=== PATIENT | female | born 1995 | race American Indian/Alaskan Native ===

== ENCOUNTER 2019-04-10 19:59 | Emergency (ER) | payer SELFPAY ==
--- NOTE | 2019-04-10 22:32 | Event Note ---
ED Screening Note Date of service: 04/10/19 Time: 22:30 ED Screening Note: 23 y o f presents with n with dizziness and headache also cc of ear pain fever This initial assessment/diagnostic orders/clinical plan/treatment(s) is/are subject to change based on patients health status, clinical progression and re- assessment by fellow clinical providers in the ED. Further treatment and workup at subsequent clinical providers discretion. Patient/guardian urged not to elope from the ED as their condition may be serious if not clinically assessed and managed. Initial orders include: ua, labs
[2019-04-10] MEDS ORDERED: ACETAMINOPHEN 325 MG TAB PO ONE (22:34)
[2019-04-10 22:49] LABS: Hematocrit 32.7 % (30.3-42.9); Hemoglobin 10.4 gm/dl (10.1-14.3); Mean Corpuscular Volume 78 fl (79-97); Red Blood Count 4.18 M/mm3 (3.65-5.03)
[2019-04-10 22:50] LABS: Basophils % (Auto) 0.2 % (0.0-1.8); Lymphocytes # (Auto) 0.4 K/mm3 (1.2-5.4); Lymphocytes % (Auto) 3.3 % (13.4-35.0); Mean Corpuscular HGB Conc 32 % (30-34); Monocytes # (Auto) 1.5 K/mm3 (0.0-0.8); Monocytes % (Auto) 12.4 % (0.0-7.3); Platelet Count 343 K/mm3 (140-440); Red Cell Distribution Width 17.6 % (13.2-15.2)
[2019-04-10 23:09] LABS: BUN/Creatinine Ratio 7; Blood Urea Nitrogen 6 mg/dL (7-17)
[2019-04-10 23:10] LABS: Alanine Aminotransferase 10 units/L (7-56)
[2019-04-11] MEDS ORDERED: SODIUM CHLORIDE 0.9% 1000 ML 1,000 ML IV ONE (00:38)
[2019-04-11] MEDS ORDERED: KETOROLAC 30 MG/1 ML INJ IV ONE (00:38)
[2019-04-11] MEDS ORDERED: SODIUM CHLORIDE 0.9% 1000 ML 2,000 ML IV ONE (00:38)
[2019-04-11] MEDS ORDERED: cefTRIAXone/NS 1 GM/50 ML 1 GM/50 ML BAG IV ONE (00:38)
[2019-04-11] MEDS ORDERED: METOCLOPRAMIDE 10 MG/2 ML INJ IV ONE (00:38)
--- NOTE | 2019-04-11 00:40 | Emergency Department Report ---
ED General Adult HPI - General Chief complaint: Dizziness Stated complaint: DIZZY, FATIGUE, MIGRAINE, EARACHE, RIGHT LUNG, Time Seen by Provider: 04/11/19 00:24 Source: patient, EMS (EMS records not available at time of chart dictation.) Mode of arrival: Ambulatory Limitations: No Limitations - History of Present Illness Initial comments: The patient is a 23-year-old female. The patient is not known to this provider previously. She states she does not have a local primary care doctor. Patient presents with multiple complaints. Her first complaint is simultaneous headache and right-sided ear pain. This is present for the past 5 days. The ear pain is described as aching and throbbing. It is in the right "inside the ear." It does not radiate anywhere. It increases with palpation. It decreases with rest. It was preceded by headache. The headache is frontal. The headache is constant. The headache is not described as sudden or thunderclap in nature. The headache is not maximal in intensity. It is not described as the most intense headache of her life. There is no neck pain or neck stiffness. There is mild sore throat. There is no tinnitus. There is no vertigo. Patient endorses decreased appetite. She is positive nausea. She is able to tolerate liquids. However, she is not eating or drinking as much she typically eats or drinks. She reports that she stumbled earlier on yesterday. She also complains of nontraumatic right-sided flank pain and chills. She might have a cough, she is not sure. She might have dysuria, she is not certain. -: Gradual Location: head, back Radiation: other Quality: other Consistency: other Improves with: other Worsens with: other - Related Data Previous Rx's Medication Instructions Recorded Last Taken Type Acetaminophen [Non-Aspirin Extra 500 mg PO Q6HR PRN #30 tablet 04/11/19 Unknown Rx Strength] Amoxicillin/Potassium Clav 1 each PO BID #20 tablet 04/11/19 Unknown Rx [Augmentin 875-125 Tablet] Ibuprofen [Motrin] 600 mg PO Q8H PRN #30 tablet 04/11/19 Unknown Rx Metoclopramide [Reglan] 10 mg PO QID PRN #30 tablet 04/11/19 Unknown Rx Allergies Allergy/AdvReac Type Severity Reaction Status Date / Time No Known Allergies Allergy Verified 01/04/20 01:38 ED Review of Systems ROS: Stated complaint: DIZZY, FATIGUE, MIGRAINE, EARACHE, RIGHT LUNG, Other details as noted in HPI Constitutional: fever, malaise, weakness Eyes: denies: eye discharge ENT: ear pain. denies: throat pain Respiratory: cough. denies: wheezing Cardiovascular: denies: syncope Gastrointestinal: nausea Musculoskeletal: back pain Skin: denies: lesions Neurological: headache, weakness. denies: numbness, paresthesias, confusion Hematological/Lymphatic: denies: easy bleeding ED Past Medical Hx - Past Medical History Previous Medical History?: Yes Additional medical history: anemia, heart murmur - Surgical History Past Surgical History?: No - Social History Smoking Status: Never Smoker Substance Use Type: None - Medications Home Medications: Home Medications Medication Instructions Recorded Confirmed Last Taken Type Acetaminophen [Non-Aspirin Extra 500 mg PO Q6HR PRN #30 tablet 04/11/19 Unknown Rx Strength] Amoxicillin/Potassium Clav 1 each PO BID #20 tablet 04/11/19 Unknown Rx [Augmentin 875-125 Tablet] Ibuprofen [Motrin] 600 mg PO Q8H PRN #30 tablet 04/11/19 Unknown Rx Metoclopramide [Reglan] 10 mg PO QID PRN #30 tablet 04/11/19 Unknown Rx ED Physical Exam - General Limitations: No Limitations General appearance: alert, in no apparent distress, anxious - Head Head exam: Present: atraumatic, normocephalic - Eye Eye exam: Present: normal appearance, EOMI. Absent: nystagmus - ENT ENT exam: Present: normal exam, normal orophraynx, mucous membranes moist, normal external ear exam, other (left tympanic membrane is clear. right TM with ? effusion. There is no mastoid tenderness. There is no tenderness over the helix.). Absent: TM's normal bilaterally - Neck Neck exam: Present: normal inspection, full ROM. Absent: tenderness, meningismus - Respiratory Respiratory exam: Present: normal lung sounds bilaterally. Absent: respiratory distress - Cardiovascular Cardiovascular Exam: Present: normal rhythm, tachycardia, normal heart sounds. Absent: systolic murmur, diastolic murmur, rubs, gallop - GI/Abdominal GI/Abdominal exam: Present: soft. Absent: distended, tenderness, guarding, rebound, rigid, pulsatile mass - Extremities Exam Extremities exam: Present: normal inspection, full ROM, other (2+ pulses noted in the bilateral upper and lower extremities. The pelvis is stable. There is no long bony tenderness. The muscular compartments are soft. There is no redness, pus, streaking or erythema.). Absent: pedal edema, joint swelling, calf tenderness - Back Exam Back exam: Present: normal inspection, full ROM, CVA tenderness (R). Absent: CVA tenderness (L), muscle spasm, paraspinal tenderness, vertebral tenderness - Neurological Exam Neurological exam: Present: alert, oriented X3, normal gait (there is no past- pointing. There is normal lbwe-rx-abay. There is no pronator drift. There is normal gait.), other (there is no facial droop. The tongue is midline. Extraocular movements are intact bilaterally. Speaking in full sentences. Hearing is grossly intact. 5 out of 5 strength bilateral upper and lower extremities. Sensation is intact to light touch bilateral upper and lower extremities.). Absent: motor sensory deficit - Psychiatric Psychiatric exam: Present: normal affect, normal mood - Skin Skin exam: Present: warm, dry, intact, normal color. Absent: rash ED Course Vital Signs 04/10/19 04/11/19 04/11/19 20:09 00:51 01:00 Temperature 102.6 F H 103.3 F H Pulse Rate 118 H 93 H 102 H Respiratory 14 22 30 H Rate Blood Pressure 129/78 125/64 Blood Pressure 125/64 [Right] O2 Sat by Pulse 100 98 99 Oximetry 04/11/19 04/11/19 04/11/19 01:30 02:47 02:54 Temperature 99.2 F Pulse Rate 100 H 76 Respiratory 21 14 Rate Blood Pressure 111/68 Blood Pressure 103/54 [Right] O2 Sat by Pulse 99 99 Oximetry - Reevaluation(s) Reevaluation #1: 04/11/19 01:32 Differential diagnosis, including but not limited to: Sinusitis, otitis, pneumonia, perinephric abscess, urinary tract infection, pyelonephritis Assessment and plan: 23-year-old female with fever, tachycardia, right-sided CVA tenderness, abnormal-appearing right tympanic membrane, concerning for simultaneous otitis, and right-sided upper urinary tract infection. There is no neck pain or stiffness, she has no meningeal signs, doubt intracranial infection. Urinalysis reviewed and appreciated, very unimpressive given degree of tenderness. CT scan abdomen and pelvis will be obtained to exclude infected stone, hydronephrosis, and perinephric abscess. Doubt intracranial lesion, however, we will obtain CT scan brain/head. We will treat the patient's symptoms, she is walking around the department so far, in no acute distress. Reevaluation #2: 04/11/19 03:15 CT scan reviewed and appreciated. Clinically do not have high suspicion for mastoiditis as the patient does not have postauricular tenderness, warmth, redness, or displacement of the right aural helix She is tolerating liquid feeds and she has defervesced. Her tachycardia has resolved. Furthermore, the patient has been observed in this department for 7 hours, and has clinically improved. Patient loaded with ceftriaxone, and she is suitable for a trial of oral outpatient antibiotic management. 04/11/19 03:18 ED Medical Decision Making - Lab Data Result diagrams: 04/10/19 22:34 04/10/19 22:34 Vital Signs 04/10/19 04/11/19 20:09 00:51 Temperature 102.6 F H 103.3 F H Pulse Rate 118 H 93 H Respiratory 14 22 Rate Blood Pressure 129/78 Blood Pressure 125/64 [Right] O2 Sat by Pulse 100 98 Oximetry Lab Results 04/10/19 04/10/19 04/10/19 Range/Units 22:34 22:34 22:34 WBC 12.2 H (4.5-11.0) K/mm3 RBC 4.18 (3.65-5.03) M/mm3 Hgb 10.4 (10.1-14.3) gm/dl Hct 32.7 (30.3-42.9) % MCV 78 L (79-97) fl MCH 25 L (28-32) pg MCHC 32 (30-34) % RDW 17.6 H (13.2-15.2) % Plt Count 343 (140-440) K/mm3 Lymph % (Auto) 3.3 L (13.4-35.0) % Tate % (Auto) 12.4 H (0.0-7.3) % Eos % (Auto) 0.0 (0.0-4.3) % Baso % (Auto) 0.2 (0.0-1.8) % Lymph # 0.4 L (1.2-5.4) K/mm3 Tate # 1.5 H (0.0-0.8) K/mm3 Eos # 0.0 (0.0-0.4) K/mm3 Baso # 0.0 (0.0-0.1) K/mm3 Seg Neutrophils % 84.1 H (40.0-70.0) % Seg Neutrophils # 10.2 H (1.8-7.7) K/mm3 Sodium 134 L (137-145) mmol/L Potassium 3.4 L (3.6-5.0) mmol/L Chloride 100.7 (98-107) mmol/L Carbon Dioxide 18 L (22-30) mmol/L Anion Gap 19 mmol/L BUN 6 L (7-17) mg/dL Creatinine 0.9 (0.7-1.2) mg/dL Estimated GFR > 60 ml/min BUN/Creatinine Ratio 7 % Glucose 129 H (65-100) mg/dL Calcium 9.0 (8.4-10.2) mg/dL Total Bilirubin 0.60 (0.1-1.2) mg/dL AST 17 (5-40) units/L ALT 10 (7-56) units/L Alkaline Phosphatase 57 (35-129) units/L Total Protein 8.1 (6.3-8.2) g/dL Albumin 4.0 (3.9-5) g/dL Albumin/Globulin Ratio 1.0 % HCG, Quant < 0.5 (0-4) mIU/mL Urine Color (Yellow) Urine Turbidity (Clear) Urine pH (5.0-7.0) Ur Specific [place] (1.003-1.030) Urine Protein (Negative) mg/dL Urine Glucose (UA) (Negative) mg/dL Urine Ketones (Negative) mg/dL Urine Blood (Negative) Urine Nitrite (Negative) Urine Bilirubin (Negative) Urine Urobilinogen (<2.0) mg/dL Ur Leukocyte Esterase (Negative) Urine WBC (Auto) (0.0-6.0) /HPF Urine RBC (Auto) (0.0-6.0) /HPF U Epithel Cells (Auto) (0-13.0) /HPF Urine Bacteria (Auto) (Negative) /HPF Urine Mucus /HPF 04/10/19 Range/Units 23:48 WBC (4.5-11.0) K/mm3 RBC (3.65-5.03) M/mm3 Hgb (10.1-14.3) gm/dl Hct (30.3-42.9) % MCV (79-97) fl MCH (28-32) pg MCHC (30-34) % RDW (13.2-15.2) % Plt Count (140-440) K/mm3 Lymph % (Auto) (13.4-35.0) % Tate % (Auto) (0.0-7.3) % Eos % (Auto) (0.0-4.3) % Baso % (Auto) (0.0-1.8) % Lymph # (1.2-5.4) K/mm3 Tate # (0.0-0.8) K/mm3 Eos # (0.0-0.4) K/mm3 Baso # (0.0-0.1) K/mm3 Seg Neutrophils % (40.0-70.0) % Seg Neutrophils # (1.8-7.7) K/mm3 Sodium (137-145) mmol/L Potassium (3.6-5.0) mmol/L Chloride (98-107) mmol/L Carbon Dioxide (22-30) mmol/L Anion Gap mmol/L BUN (7-17) mg/dL Creatinine (0.7-1.2) mg/dL Estimated GFR ml/min BUN/Creatinine Ratio % Glucose (65-100) mg/dL Calcium (8.4-10.2) mg/dL Total Bilirubin (0.1-1.2) mg/dL AST (5-40) units/L ALT (7-56) units/L Alkaline Phosphatase (35-129) units/L Total Protein (6.3-8.2) g/dL Albumin (3.9-5) g/dL Albumin/Globulin Ratio % HCG, Quant (0-4) mIU/mL Urine Color Yellow (Yellow) Urine Turbidity Slightly cloudy (Clear) Urine pH 5.0 (5.0-7.0) Ur Specific [place] 1.017 (1.003-1.030) Urine Protein <15 mg/dl (Negative) mg/dL Urine Glucose (UA) Neg (Negative) mg/dL Urine Ketones Neg (Negative) mg/dL Urine Blood Small A (Negative) Urine Nitrite neg (Negative) Urine Bilirubin Neg (Negative) Urine Urobilinogen 2.0 (<2.0) mg/dL Ur Leukocyte Esterase Small (Negative) Urine WBC (Auto) 4.0 (0.0-6.0) /HPF Urine RBC (Auto) 5.0 (0.0-6.0) /HPF U Epithel Cells (Auto) 4.0 (0-13.0) /HPF Urine Bacteria (Auto) 1+ (Negative) /HPF Urine Mucus 3+ /HPF - Radiology Data Radiology results: report reviewed, image reviewed Print Report Referring Physician: VALERY BELL Patient Name: YONI AUSTIN Date of : 1995 Sex: Female Report Date: 2019-04-11 Report Status: Finalized Findings [facility] [address] [place] [address] Cat Scan Report Signed Patient: YONI AUSTIN MR#: [id number] 2 : 1995 Acct:[id number] Age/Sex: 23 / F ADM Date: 04/10/19 Loc: ED Attending Dr: Ordering Physician: VALERY BELL MD Date of Service: 04/11/19 Procedure(s): CT head/brain wo con Accession Number(s): [id number] cc: VALERY BELL MD Examination: CT of the head without contrast Clinical information: Headache. Right-sided ear pain. Comparison: None Technical: Multiple axial CT images of the head were obtained without intravenous contrast. Sagittal and coronal reformats were obtained. All CTs at this facility utilize dose reduction techniques including automated exposure control, iterative reconstruction and weight based dosing when appropriate to reduce patient radiation dose to as low as reasonable achievable. Findings: There is no CT evidence of acute intracranial hemorrhage or large territorial infarct. The ventricular system is normal in size. There are no extra-axial fluid collections. Evaluation of bony structures demonstrate the visualized paranasal sinuses to be clear. There is partial fluid opacification of some of the right-sided mastoid air cells. The external auditory canals appear clear. Impression: 1. Partial fluid opacification of the right-sided mastoid air cells. This is a nonspecific finding but could suggest mastoiditis in this patient with right-sided ear pain. Please correlate clinically. Signer Name: Elodia Choudhary MD Signed: 04/11/2019 2:37 AM Workstation Name: [id number] Transcribed By: EB Dictated By: Elodia Choudhary MD Electronically Authenticated By: Elodia Choudhary MD Signed Date/Time: 04/11/19236 DD/ 2 Print Report Referring Physician: VALERY BELL Patient Name: YONI AUSTIN Date of : 1995 Sex: Female Report Date: 2019-04-11 Report Status: Finalized Findings [facility] [address] [place] [address] Cat Scan Report Signed Patient: YONI AUSTIN MR#: [id number] 2 : 1995 Acct:[id number] Age/Sex: 23 / F ADM Date: 04/10/19 Loc: ED Attending Dr: Ordering Physician: VALERY BELL MD Date of Service: 04/11/19 Procedure(s): CT abdomen pelvis w con Accession Number(s): [id number] cc: VALERY BELL MD CT ABDOMEN AND PELVIS WITH IV CONTRAST INDICATION: Right-sided flank pain and fever TECHNIQUE: Following the administration of intravenous contrast, multiple axial CT images of the abdomen and pelvis were acquired. Sagittal and coronal reformats were obtained. All CT performed at this facility utilize dose reduction techniques including automated exposure control, iterative reconstruction and weight based dosing when appropriate to reduce patient radiation dose to as low as reasonably achievable. COMPARISON: None FINDINGS: Limited imaging of the bilateral lung bases demonstrates a possible small focus of airspace disease within the right middle lobe partially visualized. Abdomen: The liver, spleen, gallbladder, pancreas, bilateral adrenal glands and bilateral kidneys show no evidence of acute abnormality. There is no evidence of bowel obstruction. The appendix is not visualized and there may have been previous appendectomy. Pelvis: No free fluid is seen within the pelvis. The urinary bladder and uterus appear normal. Bones and Soft Tissues: Evaluation of bony structures demonstrates no evidence of acute bony abnormality. Evaluation of soft tissue structures demonstrates no evidence of acute soft tissue abnormality. IMPRESSION: 1. No CT evidence of acute inflammatory or obstructive process within the abdomen or pelvis. 2. Possible small focus of airspace disease within the visualized right middle lobe which could suggest pneumonia. Please correlate clinically. Signer Name: Elodia Choudhary MD Signed: 04/11/2019 2:41 AM Workstation Name: [id number] Transcribed By: PEDRO Dictated By: Elodia Choudhary MD Electronically Authenticated By: Elodia Choudhary MD Signed Date/Time: 04/11/19 0241 TD/TT: Critical care attestation.: If time is entered above; I have spent that time in minutes in the direct care of this critically ill patient, excluding procedure time. ED Disposition Clinical Impression: Acute febrile illness, Otalgia of right ear, Right flank pain Disposition: -01 TO HOME OR SELFCARE Is pt being admited?: No Does the pt Need Aspirin: No Condition: Stable Additional Instructions: Advance diet as tolerated. Do not take metformin medication for the next 2 days, it patient takes this medication. Cultures were sent today, and results will be available in the next 3-5 days. Please have a primary care doctor contact the medical records department to obtain culture results. Please follow-up with a medical provider within the next 2-3 days for repeat checkup and/or evaluation. Patient may follow-up with the primary care doctor, ent doctor, or urgent care center, or return to this emergency room for repeat checkup and evaluation. Please return to the emergency room right away with projectile vomiting, change in mental status, confusion, inability to tolerate liquid feeds. Return to emergency room right away with new, worsening or different symptoms not present on initial emergency room evaluation. Referrals: CITLALI LYLES MD [Primary Care Provider] - 3-5 Days JEREMY AGUILAR MD [Staff Physician] - 3-5 Days [facility] [Provider Group] - 3-5 Days [facility] [Provider Group] - 3-5 Days
[2019-04-11 01:05] LABS: Bilirubin,Urine NEG (Negative); Blood,Urine Small (Negative); Color,Urine Yellow (Yellow)
[2019-04-11 01:06] LABS: Protein,Urine <15 mg/dL mg/dL (Negative)
[2019-04-11 01:07] LABS: Bacteria,Urine 1+ /HPF (Negative)
[2019-04-11 01:08] LABS: Mucus,Urine 3+ /HPF
[2019-04-11] MEDS ORDERED: ACETAMINOPHEN 325 MG TAB ONE (01:30)
[2019-04-11] MEDS ORDERED: ACETAMINOPHEN 325 MG TAB PO STA (02:26)
--- NOTE | 2019-04-11 02:41 | Cat Scan Report ---
Examination: CT of the head without contrast Clinical information: Headache. Right-sided ear pain. Comparison: None Technical: Multiple axial CT images of the head were obtained without intravenous contrast. Sagittal and coronal reformats were obtained. All CTs at this facility utilize dose reduction techniques inc luding automated exposure control, iterative reconstruction and weight based dosing when appropriate to reduce patient radiation dose to as low as reasonable achievable. Findings: There is no CT evidence of acute intracranial hemorrhage or large territorial infarct. The ventricular system is normal in size. There are no extra-axial fluid collections. Evaluation of bony structures demonstrate the visualized paranasal sinuses to be clear. There is part ial fluid opacification of some of the right-sided mastoid air cells. The external auditory canals ap pear clear. Impression: 1. Partial fluid opacification of the right-sided mastoid air cells. This is a nonspecific finding b ut could suggest mastoiditis in this patient with right-sided ear pain. Please correlate clinically. Signer Name: Elodia Choudhary MD Signed: 04/11/2019 2:37 AM Workstation Name: [id number]
--- NOTE | 2019-04-11 02:46 | Cat Scan Report ---
CT ABDOMEN AND PELVIS WITH IV CONTRAST INDICATION: Right-sided flank pain and fever TECHNIQUE: Following the administration of intravenous contrast, multiple axial CT images of the abdo men and pelvis were acquired. Sagittal and coronal reformats were obtained. All CT performed at this facility utilize dose reduction techniques including automated exposure control, iterative reconstru ction and weight based dosing when appropriate to reduce patient radiation dose to as low as reasonab ly achievable. COMPARISON: None FINDINGS: Limited imaging of the bilateral lung bases demonstrates a possible small focus of airspace disease w ithin the right middle lobe partially visualized. Abdomen: The liver, spleen, gallbladder, pancreas, bilateral adrenal glands and bilateral kidneys celestina w no evidence of acute abnormality. There is no evidence of bowel obstruction. The appendix is not vi sualized and there may have been previous appendectomy. Pelvis: No free fluid is seen within the pelvis. The urinary bladder and uterus appear normal. Bones and Soft Tissues: Evaluation of bony structures demonstrates no evidence of acute bony abnormal ity. Evaluation of soft tissue structures demonstrates no evidence of acute soft tissue abnormality. IMPRESSION: 1. No CT evidence of acute inflammatory or obstructive process within the abdomen or pelvis. 2. Possible small focus of airspace disease within the visualized right middle lobe which could sugge st pneumonia. Please correlate clinically. Signer Name: Elodia Choudhary MD Signed: 04/11/2019 2:41 AM Workstation Name: [email or web address]
[2019-04-11 04:13] VITALS: BP 101/53
--- NOTE | 2019-04-11 04:20 | XRay Report ---
CHEST 2 VIEWS, 04/11/2019 2:04 AM INDICATION: Fever. Right flank pain. COMPARISON: CT of the abdomen and pelvis, 04/11/2019 FINDINGS: Support devices: None Heart: The heart is normal in size. Lungs/pleura: No focal airspace disease or significant pleural effusion is seen. Additional findings: Evaluation of bony structures demonstrates no evidence of acute bony abnormality . IMPRESSION: 1. No evidence of acute cardiopulmonary process. Signer Name: Elodia Choudhary MD Signed: 04/11/2019 4:16 AM Workstation Name: [id number]
[2019-04-11 05:21] LABS: Hemolysis Index 2
== END 2019-04-11 04:00 | disposition home or self-care (01) ==
LOC: ED 19:59
DX: H92.01 Otalgia, right ear (principal); R10.9 Unspecified abdominal pain; R50.9 Fever, unspecified; D64.9 Anemia, unspecified; Z79.899 Other long term (current) drug therapy
CPT/HCPCS: 36415; 70450; 71046; 74177; 80053; 81001; 82550; 83735; 84702; 85025; 87086; 96361; 96365; 96375; 99285; J0696; J1885; J2765; J7030; Q9967